=== PATIENT | female | born 1980 | race Hispanic/Latino ===

== ENCOUNTER 2019-10-16 00:57 | Emergency (ER) | payer MEDICAID, OTHER ==
[2019-10-16] MEDS ORDERED: KETOROLAC TROMETHAMINE 60 MG/2 ML VIAL ONE (02:39)
== END 2019-10-16 03:00 | disposition home or self-care (01) ==
LOC: EDSEX 00:57 → EDH 00:57
DX: M62.838 Other muscle spasm (principal); R07.89 Other chest pain; M54.6 Pain in thoracic spine
CPT/HCPCS: 71045; 81025; 93005; 96372; 99285; J1885